=== PATIENT | male | born 1955 | race Caucasian/White ===

== ENCOUNTER 2023-01-09 21:06 | Emergency (ER) | payer OTHER ==
[~2023-01-09] VITALS: Ht 170.2 cm; Wt 81.6 kg
--- NOTE | 2023-01-09 21:06 | NUR ---
PT JEET SALDANA, PREBOOK. TAKEN TO ER CHAIR
[2023-01-09 21:15] VITALS: BP 168/92
--- NOTE | 2023-01-09 21:28 | NUR ---
Dr. Guerra examining patient.
[2023-01-09 21:42] VITALS: BP 168/92
--- NOTE | 2023-01-09 21:42 | NUR ---
PATIENT BIB TRAIL [employer]. PATIENT EXAMINED BY . PATIENT MEDICALLY CLEARED AND RELEASED IN CUSTODY IN STABLE CONDITION. ORIGINAL PRE-BOOK FORM GIVEN TO OFFICER MELIA #[id number] . Patient discharged with v/s stable. Written and verbal after care instructions given and explained. Patient verbalized understanding. Ambulatory with in custody. All questions addressed prior to discharge. Advised to follow up with PMD.
== END 2023-01-09 21:42 ==
LOC: MED 21:06
DX: Z02.89 Encounter for other administrative examinations (principal); V49.9XXA Car occupant (driver) (passenger) injured in unspecified traffic accident, initial encounter; Y93.89 Activity, other specified; Y92.410 Unspecified street and highway as the place of occurrence of the external cause; Y99.8 Other external cause status
CPT/HCPCS: 99283